=== PATIENT | female | born 1965 | race Caucasian/White ===

== ENCOUNTER → 2020-02-21 | Outpatient (CLI) | payer MEDICARE | LOC: YCFC.O 11:13 | PROVIDERS: ATTEND Family Medicine | DX: Z20.828 Contact with and (suspected) exposure to other viral communicable diseases (principal) ==

== ENCOUNTER 2020-03-27 19:47 | Emergency (ER) | payer MEDICARE ==
[2020-03-27] MEDS ORDERED: TETANUS,DIPHTHERIA,PERTUSSIS 1 EA SYG IM ONE (20:09)
[2020-03-27] MEDS ORDERED: LIDOCAINE 1% 2 ML VIAL INJ ONE (20:09)
--- NOTE | 2020-03-27 20:12 | ED.PDOC ---
History of Present Illness - General Chief Complaint: Skin/Abrasion/Tear Stated Complaint: fish hook in leg Time Seen by Provider: 03/27/20 20:08 Source: patient, RN notes reviewed, Vital Signs reviewed Exam Limitations: no limitations - History of Present Illness Initial Comments: 54 y/o female reeling in line while fishing. The line caught on something and then pulled loose flinging treble hook into lateral R calf Timing/Duration: just prior to arrival, this evening Severity: moderate Location: extremities Improving Factors: nothing Worsening Factors: nothing Associated Symptoms: denies symptoms Review of Systems - Review of Systems Constitutional: States: no symptoms reported EENTM: States: no symptoms reported Respiratory: States: no symptoms reported Cardiology: States: no symptoms reported Gastrointestinal/Abdominal: States: no symptoms reported Genitourinary: States: other - hx of vulvar cancer Musculoskeletal: States: no symptoms reported Skin: States: other - foreign boddy in leg Neurological: States: no symptoms reported Physical Exam - Physical Exam General Appearance: Alert, No apparent distress Extremity: other - treble hook with one hook embedded in R lateral calf Progress - Progress Progress: 03/27/20 20:29 anesthetized area around fish hook, cleansed and irrigated both before and after removal. Used #11 blade to free bard and remove hook Procedures - Foreign Body Removal Foreign Body Removal: fish hook Departure - Departure Clinical Impression: Fish hook injury of right lower leg Qualifiers: Encounter type: initial encounter Qualified Code(s): S89.91XA - Unspecified injury of right lower leg, initial encounter Time of Disposition: 20:31 Disposition: Discharge to Home or Self Care Condition: Good Departure Forms: ED Discharge - Pt. Copy, Patient Portal Self Enrollment Instructions: DI for Abrasion Referrals: Clarissa Valencia MD [Primary Care Provider] - 1-2 Weeks
[2020-03-27] MEDS ORDERED: NEOMYCIN-BACITRACIN-POLYMYXIN 0.9 GM UD TOP ONE (20:29)
[2020-03-27 20:40] VITALS: BP 123/70; TEMP 97.2; O2SAT 97
== END 2020-03-27 20:40 | disposition home or self-care (01) ==
LOC: ER 19:47
DX: S80.851A Superficial foreign body, right lower leg, initial encounter (principal); W45.8XXA Other foreign body or object entering through skin, initial encounter; Y92.9 Unspecified place or not applicable; Y92.828 Other wilderness area as the place of occurrence of the external cause; Z85.44 Personal history of malignant neoplasm of other female genital organs